=== PATIENT | male | born 1955 | race Caucasian/White ===

== ENCOUNTER 2018-02-23 18:06 | Emergency (ER) | payer SELFPAY ==
--- NOTE | 2018-02-23 18:26 | EDPHY ---
H & P Time Seen by Provider: 02/23/18 18:16 HPI/ROS: CHIEF COMPLAINT: Left shoulder pain HISTORY OF PRESENT ILLNESS: The patient is a 62-year-old male who presents emergency department with left shoulder pain after sustaining a fall. The patient was caring an item into a storage unit when he slipped on his Crocks. He slammed into his posterior left shoulder and struck his head. He did not lose consciousness. He denies any headache or neck pain at this time. He has severe left shoulder pain. It is worse with movement. No numbness or tingling. The patient drove himself to the emergency department. REVIEW OF SYSTEMS: My complete review of systems is negative except as mentioned in the HPI. Past Medical/Surgical History: Alcoholism Past surgical history: Noncontributory Social history: The patient is not currently drink alcohol. He denies drug use. He does not smoke. Physical Exam: Vitals noted GENERAL: Well-appearing, in no acute distress, alert. HEAD: No evidence of trauma. EYES: PERRLA, EOMI, normal to inspection. ENT: Airway intact, no dental or oral injury, no malocclusion, no hemotympanum , normal external examination. NECK: The trachea is midline. There is no crepitus. The C-spine is nontender. NEXUS criteria is negative (no midline tenderness, no distracting injury, no altered mental status, no recent alcohol use, no focal neurologic deficit). RESPIRATORY: Clear to auscultation bilaterally, no rales, rhonchi or wheezing. There is no crepitus or palpable rib fractures. CVS: Regular rate and rhythm, no rubs, murmurs, or gallops. ABDOMEN: Soft, nontender, nondistended, normal bowel sounds, no bruising or abrasions. Pelvis: Stable. No tenderness palpation. Hips full range of motion. BACK: Normal to inspection, no spinal tenderness, no spinal step off, no notable bruising or abrasions. SKIN: Normal color, warm, dry. No pallor or diaphoresis. EXTREMITIES: Right upper extremity: Atraumatic. No visible signs of trauma. No tenderness palpation. Neurovascular intact distally. Left upper extremity: Patient has significant tenderness palpation at his left shoulder. There is no laceration. Mild swelling at the deltoid. No clavicular tenderness. No scapular tenderness. Neurovascular intact distally. Right lower extremity: Atraumatic. No visible signs of trauma. No tenderness palpation. Neurovascular intact distally. Left lower extremity: Atraumatic. No visible signs of trauma. No tenderness palpation. Neurovascular intact distally. NEURO/PSYCH: Alert and oriented x 3, GCS 15, normal mood and affect, normal motor sensory exam. Constitutional: Initial Vital Signs Temperature (C) 36.7 C 02/23/18 18:08 Heart Rate 68 02/23/18 18:08 Respiratory Rate 18 02/23/18 18:08 Blood Pressure 100/70 02/23/18 18:08 O2 Sat (%) 98 02/23/18 18:08 O2 Delivery Mode Room Air Allergies/Adverse Reactions: No Known Allergies Allergy (Unverified 02/23/18 18:11) Home Medications: Medication Instructions Recorded Hydrocodone/APAP 5/325 [[place] 1 - 2 tab PO Q4 #13 tab 02/23/18 5/325 (RX)] Ondansetron Odt [Zofran Odt 4 mg 4 mg PO Q4PRN PRN #7 tab 02/23/18 (*)] Medical Decision Making - Diagnostics Imaging Results: Imaging Impressions Humerus X-Ray 02/23/18 18:12 Impression: 1. Displaced comminuted left humeral neck fracture. ED Course/Re-evaluation: In the emergency department I met the patient on arrival. An x-ray of the left shoulder was ordered. Left shoulder x-ray: Please refer the dictated report. Patient has a comminuted fracture of the left proximal humerus. I discussed the result with the patient. I answered all his questions. The patient last ate at 1:00 [address] case [address] Dr. Rojas from Orthopedic surgery. He recommended a shoulder immobilizer. This was requested from the operating room. He requests the patient be discharged with this mobilizer follow-up in his office in 1-2 days. I discussed the plan with the patient. I answered all his questions. He agrees with this plan. He was given ibuprofen 600 mg orally and 2 Vicodin orally. Patient was given a prescription for Vicodin and Zofran. Prior to leaving patient was neurovascularly intact distally. He is given warnings prior to leaving. Differential Diagnosis: My differential includes but is not limited to humerus fracture, dislocation, neurovascular injury, subarachnoid hemorrhage, subdural hematoma, epidural hematoma, spinal injury Departure - Departure Disposition: Home, Routine, Self-Care Clinical Impression: Fracture, humerus closed Qualifiers: Encounter type: initial encounter Humerus Location: proximal Fracture morphology: other fracture Fracture alignment: displaced Laterality: left Qualified Code(s): S42.292A - Other displaced fracture of upper end of left humerus, initial encounter for closed fracture Condition: Good Instructions: Proximal Humerus Fracture (ED) Additional Instructions: Your proximal humerus fracture. This will need close follow-up with Orthopedics. Call Dr. Rojas tomorrow morning to make the appointment. You should be seen in 1-2 days. Keep your sling in place. Referrals: Bobo Rojas MD [Medical Doctor] - 5-7 days, call for appt. Prescriptions: Hydrocodone/APAP 5/325 [[place] 5/325 (RX)] 1 - 2 tab PO Q4 #13 tab Ondansetron Odt [Zofran Odt 4 mg (*)] 4 mg PO Q4PRN PRN #7 tab PRN Reason: For Nausea & Vomiting
[2018-02-23] MEDS ORDERED: HYDROCOD/APAP 5/325 PREPACK#6 BTL TAKEHOME ONE (18:51)
[2018-02-23] MEDS ORDERED: IBUPROFEN 600 MG TAB PO ONE (18:51)
[2018-02-23] MEDS ORDERED: HYDROCODONE/APAP 5/325 TAB PO ONE (18:52)
[2018-02-23 19:51] VITALS: BP 115/71
== END 2018-02-23 19:50 | disposition home or self-care (01) ==
LOC: EEVIPCON 18:06
DX: S42.292A Other displaced fracture of upper end of left humerus, initial encounter for closed fracture (principal); W01.198A Fall on same level from slipping, tripping and stumbling with subsequent striking against other object, initial encounter; Y92.89 Other specified places as the place of occurrence of the external cause; Y99.8 Other external cause status; Y93.89 Activity, other specified